=== PATIENT | female | born 1945 | race Caucasian/White ===

== ENCOUNTER 2016-10-12 17:07 | Emergency (ER) | payer MEDICARE, OTHER ==
--- NOTE | 2016-10-12 18:26 | ER PHYSICIAN DOCUMENTATION ---
Physician Documentation [facility] Name:Josselin Castro Age:70 yrs Sex:Female :1945 Arrival Date:10/12/2016 Time:17:07 Bed6 Private MD: Chente Wilde Disposition: 10/12 18:30 Chart complete. tl1 Disposition: 10/12/16 18:17 Discharged to Home/Self Care. Impression: Shoulder Injury. - Condition is Good. - Discharge Instructions: SHOULDER PAIN (Uncertain Cause). - Medical Reconciliation form form. - Follow up: Private Physician; When: 4- 6 days; Reason: Recheck today's complaints, Continuance of care. - Problem is new. - Symptoms have improved. HPI: 17:10 This 70 yrs old Female presents to ER with complaints of Shoulder Injury - rt.tl1 17:10 The patient or guardian complains of pain. right shoulder The complaint affects the tl1 patient's dominant side (right). Context: resulted from closing the glove box in the car.. Onset: The symptom(s)/episode began/occurred suddenly, just prior to arrival. Modifying factors: the symptoms are alleviated by The symptoms are aggravated by movement. The patient has experienced similar episodes in the past. She has had a shoulder replacement about a year ago.. She says it feels like it is out of place.. Historical: - Allergies: Aspirin; NSAIDS; Codeine; Demerol; Augmentin; Avelox; Doxycycline; - Tetanus: < 10 years. - Ebola Screening: : Patient negative for fever greater than or equal to 101.5 degrees Fahrenheit, and additional compatible Ebola Virus Disease symptoms. Patient denies exposure to infectious person. Patient denies travel to an Ebola-affected area in the 21 days before illness onset. No symptoms or risks identified at this time. . - Immunization history: Flu Vaccine < 1 year. - Social history: Smoking status: Patient uses tobacco products, heavy tobacco smoker. ROS: 17:10 MS/extremity: Positive for pain, tenderness, of the anterior aspect of right shoulder tl1 and posterior aspect of right shoulder, Negative for Exam: 17:10 Head/Face: Normocephalic, atraumatic. tl1 17:10 Constitutional: The patient appears alert, awake, well developed, well hydrated, well groomed, well nourished, uncomfortable. 17:10 Cardiovascular: Rate: normal. 17:10 Respiratory: Respirations: normal. 17:10 Musculoskeletal/extremity: Extremities: grossly normal except: noted in the anterior aspect of right shoulder and posterior aspect of right shoulder: decreased ROM, pain, tenderness, There is no evidence of deformity, erythema, swelling. 17:10 Musculoskeletal/extremity: Circulation is intact in all extremities. Sensation intact. Joints: All joints are normal except the right shoulder displays painful range of motion, tenderness. 17:10 Skin: Exam negative for acute changes. 17:10 Neuro: Exam negative for acute changes. Vital Signs: 17:24 BP 141 / 88; Pulse 91; Resp 18; Temp 98; Pulse Ox 91% on R/A; Weight 68.04 kg; Height 5 bw2 ft. 5 in. (165.10 cm); Pain 6/10; 18:25 BP 133 / 62; Pulse 97; Resp 18; Pulse Ox 92% on R/A; Pain 4/10; bw2 17:24 Body Mass Index 24.96 (68.04 kg, 165.10 cm) bw2 MDM: 17:10 Patient medically screened. tl1 17:15 Differential diagnosis: Anterior dislocation without fracture, Posterior dislocation tl1 without fracture, DJD, tendonitis. Data reviewed: vital signs, nurses notes, radiologic studies, plain films. Data reviewed: and as a result, I will discharge patient. Test interpretation: by ED physician or midlevel provider: plain radiologic studies. Counseling: I had a detailed discussion with the patient and/or guardian regarding: the historical points, exam findings, and any diagnostic results supporting the discharge/admit diagnosis, radiology results, the need for outpatient follow up, for a recheck, for a referral to a specialist, a orthopedic surgeon. Medication response: The patient's symptoms have improved. 10/12 21:40 Order name: SHOULDER; 2V+ [place] [id number]; Complete Time: 07:39 EDMS 10/13 07:39 Interpretation: NAD. [email or web address] Dispensed Medications: No medications were administered Signatures: Chente Soto MD MD tl1 Felisa Daly bw2
--- NOTE | 2016-10-12 18:26 | ER NURSING DOCUMENTATION ---
Nurse's Notes [facility] Name:Josselin Castro Age:70 yrs Sex:Female :1945 Arrival Date:10/12/2016 Time:17:07 Bed6 Private MD: Diagnosis:Shoulder Injury Presentation: 10/12 17:15 Presenting complaint: Patient states: pt states she was reaching for something and bw2 heard a snap in her right shoulder. 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 Transition of care: patient was not received from another setting of care. 17:15 Method Of Arrival: Wheelchair bw2 17:15 Acuity: DANIEL 2 bw2 Triage Assessment: 17:22 General: Appears in no apparent distress, uncomfortable, Behavior is anxious, bw2 appropriate for age. Pain: Complains of pain in right shoulder. Musculoskeletal: Bony deformity noted of right shoulder. Injury Description: Deformity sustained to right shoulder. Historical: - Allergies: Aspirin; NSAIDS; Codeine; Demerol; Augmentin; Avelox; Doxycycline; - Tetanus: < 10 years. - Ebola Screening: : Patient negative for fever greater than or equal to 101.5 degrees Fahrenheit, and additional compatible Ebola Virus Disease symptoms. Patient denies exposure to infectious person. Patient denies travel to an Ebola-affected area in the 21 days before illness onset. No symptoms or risks identified at this time. . - Immunization history: Flu Vaccine < 1 year. - Social history: Smoking status: Patient uses tobacco products, heavy tobacco smoker. Screenin:26 Infectious Disease Risk None. Abuse screen: Denies threats or abuse. Denies injuries bw2 from another. Nutritional screening: No deficits noted. Assessment: 17:25 See Triage Assessment done by same RN. bw2 Vital Signs: 17:24 BP 141 / 88; Pulse 91; Resp 18; Temp 98; Pulse Ox 91% on R/A; Weight 68.04 kg; Height 5 bw2 ft. 5 in. (165.10 cm); Pain 6/10; 18:25 BP 133 / 62; Pulse 97; Resp 18; Pulse Ox 92% on R/A; Pain 4/10; bw2 17:24 Body Mass Index 24.96 (68.04 kg, 165.10 cm) bw2 ED Course: 17:08 Patient arrived in ED. ds 17:09 Felisa Daly is Primary Nurse. bw2 17:10 Chente Soto MD is Attending Physician. tl1 17:16 Triage completed. bw2 17:26 Valuables Remains with patient. bw2 18:19 Sling applied to right arm. em3 Administered Medications: No medications were administered Outcome: 18:17 Discharge ordered by . tl1 18:25 Discharged to home via ambulance, with family. bw2 18:25 Condition: good 18:25 Discharge Assessment: Patient awake, alert and oriented x 3. No cognitive and/or functional deficits noted. Patient verbalized understanding of disposition instructions. 18:25 Discharge instructions given to patient, Instructed on discharge instructions, follow up and referral plans. Demonstrated understanding of instructions. 18:26 Patient left the ED. [id number] 11:45 Discharge F/U Call: Spoke with: patient. other: Name: pt states she feels a little st bit better now. Signatures: Lety Gamez, RN RN st Srot, Jazmyne, Reg Reg servando Aquino, Clay Peña em3 Chente Soto MD MD tl1 Felisa Daly bw2
--- NOTE | 2016-10-12 19:43 | RADIOLOGY REPORT ---
Three views of the right shoulder without prior films for comparison demonstrate right reverse shoulder arthroplasty. Components appear intact and in appropriate position. A 1.5 cm bony fragment is seen inferior to the joint. Post surgical change versus trauma of indeterminate age. Bony structures otherwise appear unremarkable. IMPRESSION: 1. Unremarkable right shoulder replacement. 2. Indeterminate ossification inferior to the joint replacement. Post surgical versus trauma of indeterminate age. MTDD
== END 2016-10-12 18:26 | disposition home or self-care (01) ==
LOC: ER 17:07
DX: S49.81XA Other specified injuries of right shoulder and upper arm, initial encounter (principal); Z96.611 Presence of right artificial shoulder joint; X50.0XXA Overexertion from strenuous movement or load, initial encounter; Y92.810 Car as the place of occurrence of the external cause; F17.210 Nicotine dependence, cigarettes, uncomplicated
CPT/HCPCS: 99283